=== PATIENT | male | born 1975 | race Caucasian/White ===

== ENCOUNTER 2020-01-25 19:10 | Emergency (ER) | payer OTHER ==
[~2020-01-25] VITALS: Ht 172.7 cm; Wt 85.7 kg
[2020-01-25] MEDS ORDERED: LORazepam 2 MG/ML, 1ML IVPush ONE (19:30)
[2020-01-25] MEDS ORDERED: SODIUM CHLORIDE FLUSH 10ML SYR IVF ONE (19:30)
[2020-01-25] MEDS ORDERED: SODIUM CHLORIDE 0.9% 1,000ML IVBOLUS ONE ×2 (19:30→20:30)
[2020-01-25] MEDS ORDERED: SILVER SULF. CRM 1% , 25GM TP ONE (19:30)
[2020-01-25] MEDS ORDERED: ONDANSETRON 2MG/ML, 2ML IVPush ONE (19:30)
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
[2020-01-25] MEDS ORDERED: ONDANSETRON 2MG/ML, 2ML ONE (19:46)
[2020-01-25] MEDS ORDERED: SILVER SULF. CRM 1% , 25GM ONE (19:46)
[2020-01-25] MEDS ORDERED: LORazepam 2 MG/ML, 1ML ONE (19:47)
--- NOTE | 2020-01-25 19:56 | NUR ---
MANSOOR IN ROOM NRB APPLIED.
[2020-01-25] MEDS ORDERED: PLEASE ENTER ALLERGIES MC SCH (20:00)
[2020-01-25 21:43] VITALS: BP 109/85
== END 2020-01-25 21:45 | disposition home or self-care (01) ==
LOC: ED 20:25
DX: J70.5 Respiratory conditions due to smoke inhalation (principal); R06.00 Dyspnea, unspecified; R42 Dizziness and giddiness; R51 Headache; R11.10 Vomiting, unspecified; R94.31 Abnormal electrocardiogram [ECG] [EKG]
CPT/HCPCS: 36415; 71045; 82375; 93005; 96361; 96374; 96375; 99285; J2060; J2405; J7030